=== PATIENT | female | born 1965 | race Two or more races ===

== ENCOUNTER 2019-04-28 09:42 | Outpatient (CLI) | payer OTHER | END 2019-04-28 09:51 | disposition home or self-care (01) | LOC: RAD 09:42 → MAMO-SONO 09:45 → RAD 09:51 | DX: N95.1 Menopausal and female climacteric states (principal); M54.5 Low back pain ==

== ENCOUNTER 2019-07-17 11:12 | Outpatient (CLI) | payer OTHER | END 2019-07-17 11:28 | disposition home or self-care (01) | LOC: SONOGRAMA 11:12 | DX: R31.9 Hematuria, unspecified (principal) ==

== ENCOUNTER → 2021-02-16 | Outpatient (CLI) | payer OTHER | END | disposition home or self-care (01) | LOC: MAMO-SONO 01-30 07:45 → SONOGRAMA 07:36 | DX: Q51.818 Other congenital malformations of uterus (principal) ==

== ENCOUNTER 2025-03-31 08:11 | Outpatient (CLI) | payer OTHER | END 2025-03-31 08:17 | disposition home or self-care (01) | LOC: SONOGRAMA 08:11 | PROVIDERS: ATTEND Obstetrics & Gynecology Gynecologic Oncology | DX: N85.00 Endometrial hyperplasia, unspecified (principal) ==